=== PATIENT | male | born 1935 | race Caucasian/White ===

== ENCOUNTER → 2016-12-08 | Outpatient (CLI) | payer MEDICARE, OTHER ==
[~2016-12-08] MED LIST: ACET325 PO; ADVA250A INH; AMBI10TA PO; CALC625 PO; CARV6.25 PO; CEFU1TAB43 PO; COUM5TAB PO; DIGO50SO PO; FLAG500T PO; FURO1TAB93 PO; LORT5TAB PO; LORTA5 PO; PACE200T4 PO; VYTO10TA29 PO
[2016-12-08 13:20] LABS: BLOOD, URINE NEG (NEG); GLUCOSE,URINE NEG (NEG); KETONE, URINE NEG (NEG); NITRITE,URINE NEG (NEG); PH, URINE 5.5 (5.0-8.5); URINE COLOR LIGHT-YELLOW (YELLW/STRAW)
[2016-12-08 13:25] LABS: HEMATOCRIT 48.7 % (39.0-51.0); MEAN CELL VOLUME 96.4 FL (80.0-100.0); MEAN CORPUSCULAR HEMOGLOBIN 31.7 PG (27.0-34.0); MEAN CORPUSCULAR HGB CONC 32.9 % (32.0-36.0); PLATELET COUNT 192 TH/MM3 (150-450); RED BLOOD COUNT 5.04 MIL/MM3 (4.50-5.90); RED CELL DISTRIBUTION WIDTH 17.1 % (11.6-17.2); REVIEW FLAG FINAL; WHITE BLOOD COUNT 11.6 TH/MM3 (4.0-11.0)
[2016-12-08 13:50] LABS: WESTERGREN SEDIMENTATION RATE 1 mm/hr (0-20)
[2016-12-08 13:51] LABS: HDL CHOLESTEROL 41.5 MG/DL (40.0-60.0)
== END ==
LOC: PLAB 11:31
PROVIDERS: ATTEND Internal Medicine Interventional Cardiology
DX: I25.10 Atherosclerotic heart disease of native coronary artery without angina pectoris (principal); I25.9 Chronic ischemic heart disease, unspecified; E78.00 Pure hypercholesterolemia, unspecified; R06.02 Shortness of breath
CPT/HCPCS: 36415; 80061; 81001; 83880; 84443; 84450; 84460; 85027; 85652